=== PATIENT | female | born 1995 | race Caucasian/White ===

== ENCOUNTER 2018-06-21 02:58 | Emergency (ER) | payer OTHER ==
[~2018-06-21] VITALS: Ht 172.7 cm; Wt 72.6 kg
--- NOTE | ~2018-06-21 | EKG ---
[facility] [place] [address] ELECTROCARDIOGRAM REPORT Name: GENET DE LA CRUZ Room #: DEP AMBER Barajas#: [id number] Admission: 06/21/18 Attend Phys: Discharge: 06/21/18 Date of : [birth year] Report #: [id number] THIS REPORT FOR: //name// [facility] ED Test Date: 2018-06-21 Test Time: 03:45:18 Pat Name: GENET DE LA CRUZ Department: Patient ID: [id number]- Room: Gender: F Hotel Maintenance Technician: EDMAR : 1995 Requested By: Alexa Brooks Order Number: [id number] MD: Adam Jenkins Measurements Intervals [place] Rate: 92 P: 15 UT: 146 QRS: 59 QRSD: 95 T: -6 QT: 358 QTc: 443 Interpretive Statements Sinus rhythm Borderline T abnormalities, inferior leads Baseline wander in lead(s) V2 No previous ECG available for comparison Electronically Signed On 06-21-2018 7:45:57 ABSENCE MANAGEMENT CONSULTANT by Adam Jenkins [email or web address] <ELECTRONICALLY SIGNED> By: Adam Jenkins MD, [facility] 06/21/18 [id number] [id number] Adam Jenkins MD, FACC /EPI
[2018-06-21] MEDS ORDERED: CLONAZEPAM 0.50.5 M1 PO (03:16)
[2018-06-21 03:23] LABS: ABSOLUTE NEUTROPHILS 5.1 thou/uL (1.4-8.2); BASOPHILS 0.8 % (0.0-2.0); HEMATOCRIT 38.9 % (37.0-47.0); HEMOGLOBIN 13.7 gm/dL (12.0-15.0); LYMPHOCYTES 32.4 % (24.0-44.0); MCH 34.4 pg (26.0-34.0); MCHC 35.1 g/dL (28.0-37.0); MCV 97.9 fL (80.0-100.0); PLATELET COUNT 287 thou/uL (150-400); POLYS 55.8 % (36.0-66.0); RBC 3.97 mil/uL (4.20-5.00); RDW 12.2 % (10.5-14.5); WBC 9.1 thou/uL (4.0-11.0)
[2018-06-21 03:31] LABS: CALCIUM 8.5 mg/dL (8.5-10.1); CREATININE 1.1 mg/dL (0.6-1.0)
[2018-06-21] MEDS ORDERED: REGLAN 5 MG TAB5 MG PO (06:18)
== END 2018-06-21 06:41 | disposition home or self-care (01) ==
LOC: ER 02:58
PROVIDERS: Emergency Medicine
DX: F44.5 Conversion disorder with seizures or convulsions (principal); G43.909 Migraine, unspecified, not intractable, without status migrainosus

== ENCOUNTER 2019-02-14 18:00 | Emergency (ER) | payer OTHER ==
[~2019-02-14] VITALS: Ht 167.6 cm; Wt 68.0 kg
[~2019-02-14 18:00] MED LIST: CLONAZEPAM 0.50.5 M1 PO; REGLAN 5 MG TAB5 MG PO
[2019-02-14] MEDS ORDERED: SEROQUEL200 MG PO (18:05)
[2019-02-14] MEDS ORDERED: IMITREX 50 MG T50 MG PO (19:32)
[2019-02-14] MEDS ORDERED: PROMS25 WY RECTAL (19:32)
[2019-02-14 20:49] VITALS: BP 159/96
== END 2019-02-14 20:50 | disposition home or self-care (01) ==
LOC: ER 18:00
DX: S09.8XXA Other specified injuries of head, initial encounter (principal); G43.909 Migraine, unspecified, not intractable, without status migrainosus; F45.8 Other somatoform disorders; W22.09XA Striking against other stationary object, initial encounter; Y93.89 Activity, other specified; Y92.89 Other specified places as the place of occurrence of the external cause; Y99.8 Other external cause status